=== PATIENT | female | born 1990 | race Caucasian/White ===

== ENCOUNTER 2017-08-12 07:55 | Emergency (ER) | payer MEDICAID ==
--- NOTE | 2017-08-12 08:15 | EDPHY ---
H & P Stated Complaint: l abd pain traveled here from [place]/not eating/jtube placed for this [place] - Personal History LMP (Females 10-55): 22-28 Days Ago Current Tetanus/Diphtheria Vaccine: Yes - Medical/Surgical History Hx Asthma: No Hx Chronic Respiratory Disease: No Hx Diabetes: No Hx Cardiac Disease: No Hx Renal Disease: No Hx Cirrhosis: No Hx Alcoholism: No Hx HIV/AIDS: No Hx Splenectomy or Spleen Trauma: No Other PMH: tubal ligation/j tube - Social History Smoking Status: Never smoked Time Seen by Provider: 08/12/17 08:05 HPI/ROS: CHIEF COMPLAINT: Left-sided abdominal pain x3 days HISTORY OF PRESENT ILLNESS: 26-year-old female with remote history of cholecystectomy, history of gastric bypass 1 month ago in [place], had J-tube placement 1 week ago in [place] due to decreased oral intake. She is complaining of 3-4 days of left-sided abdominal pain and nausea with no vomiting. Her J-tube is patent and is being used for feedings. She is able to tolerate oral fluid intake only. Bowel movements have looser than normal with no melena or hematochezia. No vomiting. PRIMARY CARE PROVIDER:In [place] REVIEW OF SYSTEMS: A ten point review of systems was performed and is negative with the exception of the items mentioned in the HPI PAST MEDICAL & SURGICAL HISTORY: Remote history of cholecystectomy. Gastric bypass 1 month ago. J-tube placement 1 week ago SOCIAL HISTORY:Nonsmoker, visiting from [place] PHYSICAL EXAM (Prior to examination, patient consented to physical exam, hands were washed and my usual and customary physical exam procedures followed) 1) GENERAL: Well-developed, well-nourished, alert and oriented. Appears uncomfortable 2) HEAD: Normocephalic, atraumatic 3) HEENT: Pupils equal, round, reactive to light bilaterally. Sclera anicteric. Nasopharynx, oropharynx, clear, no lesions. Dry mucous membranes Ears bilaterally with normal tympanic membranes. 4) NECK: Full range of motion, no meningeal signs. 5) LUNGS: Clear auscultation bilaterally, no wheezes, no rhonchi, no retractions. 6) HEART: Regular rate and rhythm, no murmur, no heave, no gallop. 7) ABDOMEN: Jejunal tube in place. Tender to palpation left upper and left lower abdomen. No distension. No guarding, no rebound, no focal tenderness, negative McBurney's, negative Dickson's, negative Rovsing's, negative peritoneal sign, 8) MUSCULOSKELETAL: Moving all extremities, no focal areas of tenderness, no obvious trauma. No peripheral edema or discoloration. 9) BACK: No CVA tenderness, no midline vertebral tenderness, no fluctuance, no step-off, no obvious trauma, no visual or palpable abnormality. 10) SKIN: No rash, no petechiae. 11) Psychiatric: Patient is oriented X 3, there is no agitation. DIFFERENTIAL DIAGNOSIS: In no particular order including but not limited to postoperative complications, intra-abdominal abscess, bowel obstruction (Michael Coffey) Constitutional: Initial Vital Signs Temperature (C) 36.8 C 08/12/17 07:58 Heart Rate 90 08/12/17 07:58 Respiratory Rate 16 08/12/17 07:58 Blood Pressure 120/73 08/12/17 07:58 O2 Sat (%) 97 08/12/17 07:58 O2 Delivery Mode Room Air Allergies/Adverse Reactions: No Known Allergies Allergy (Unverified 08/12/17 07:56) Home Medications: Medication Instructions Recorded Hydrocodone/APAP 5/325 [Josephine 1 tab PO Q6 PRN #10 tab 08/12/17 5/325 (RX)] Ondansetron Odt [Zofran Odt] 4 mg PO Q4PRN PRN #10 tab 08/12/17 Medical Decision Making - Diagnostics Imaging Results: Imaging Impressions Abdomen CT 08/12/17 08:11 Impression: 1. Postsurgical changes of gastric bypass. J-tube in place with adjacent focal area of free intraperitoneal air. 2. Question diffuse mild wall thickening of the colon in the splenic flexure and descending colon, which could represent colitis versus nondistention. 3. Focal area of soft tissue attenuation and inflammatory change in the mesentery in the anterior right pelvis, which could represent epiploic appendagitis or other nonspecific inflammatory change. 4. Status post cholecystectomy. Results called and discussed with Royce Coffey PA-C on August 12, 2017 at 0921 hours. Images reviewed myself (Michael Coffey) ED Course/Re-evaluation: I evaluated this patient with Royce. We discussed the laboratory findings and CT findings. She ran out of her Oxy code tones. She [place] a bariatric surgeon [place] of [place] who she will follow up with. (Landon Hernandez) 8:15 a.m.: Discussed case with secondary supervising physician Dr. Landon Hernandez in the ER. Will plan on laboratory studies, CT imaging. 9:26 a.m.: Consultation with on-call surgery Dr. Oanh Lopez who will evaluate the patient as the patient was noted to have a small amount of free air in the abdomen which may be secondary to recent J-tube placement. 10:30 a.m.: Dr. Oanh Lopez has consulted. She recommended a J-tube Gastrografin study. If this shows no extravasation states the patient can be discharged and keep the patient has appointment on Sunday in [place] (today is Sunday), recommended decreasing j tube feedings. If this study does show extravasation will contact Dr. Oanh Lopez. 11:19 a.m.: Informed by radiologist J-tube placement is appropriate. Dr. Oanh Lopez has reviewed these images and she electronically communicated with me the J tube looks well and the patient can be discharged. Recommend patient keep her appointment on Sunday with her doctor in [place] (today is Sunday). Plan will be discharge home with analgesia (Michael Coffey) - Data Points Laboratory Results: Laboratory Results 08/12/17 08:15 08/12/17 08:15 08/12/17 08/12/17 08/12/17 08:15 08:15 08:15 WBC 5.50 10^3/uL 10^3/uL (3.80-9.50) RBC 5.03 10^6/uL 10^6/uL (4.18-5.33) Hgb 11.1 g/dL L g/dL (12.6-16.3) Hct 35.6 % L % (38.0-47.0) MCV 70.8 fL L fL (81.5-99.8) MCH 22.1 pg L pg (27.9-34.1) MCHC 31.2 g/dL L g/dL (32.4-36.7) RDW 16.8 % H % (11.5-15.2) Plt Count 438 10^3/uL H 10^3/uL (150-400) MPV 8.0 fL L fL (8.7-11.7) Neut % (Auto) 64.7 % % (39.3-74.2) Lymph % (Auto) 24.9 % % (15.0-45.0) [place] % (Auto) 4.2 % L % (4.5-13.0) Eos % (Auto) 5.3 % % (0.6-7.6) Baso % (Auto) 0.5 % % (0.3-1.7) Nucleat RBC Rel Count 0.0 % % (0.0-0.2) Absolute Neuts (auto) 3.56 10^3/uL 10^3/uL (1.70-6.50) Absolute Lymphs (auto) 1.37 10^3/uL 10^3/uL (1.00-3.00) Absolute Monos (auto) 0.23 10^3/uL L 10^3/uL (0.30-0.80) Absolute Eos (auto) 0.29 10^3/uL 10^3/uL (0.03-0.40) Absolute Basos (auto) 0.03 10^3/uL 10^3/uL (0.02-0.10) Absolute Nucleated RBC 0.00 10^3/uL 10^3/uL (0-0.01) Immature Gran % 0.4 % % (0.0-1.1) Immature Gran # 0.02 10^3/uL 10^3/uL (0.00-0.10) Sodium 145 mEq/L mEq/L (135-145) Potassium 4.1 mEq/L mEq/L (3.5-5.2) Chloride 105 mEq/L mEq/L (97-110) Carbon Dioxide 27 mEq/l mEq/l (22-31) Anion Gap 13 mEq/L mEq/L (8-16) BUN 12 mg/dL mg/dL (7-23) Creatinine 0.5 mg/dL L mg/dL (0.6-1.0) Estimated GFR > 60 Glucose 95 mg/dL mg/dL (70-100) Calcium 8.9 mg/dL mg/dL (8.5-10.4) Total Bilirubin 0.5 mg/dL mg/dL (0.1-1.4) Conjugated Bilirubin 0.3 mg/dL mg/dL (0.0-0.5) Unconjugated Bilirubin 0.2 mg/dL mg/dL (0.0-1.1) AST 25 IU/L IU/L (14-46) ALT 39 IU/L IU/L (9-52) Alkaline Phosphatase 127 IU/L H IU/L (38-126) Total Protein 7.7 g/dL g/dL (6.3-8.2) Albumin 4.4 g/dL g/dL (3.5-5.0) Lipase 227 IU/L IU/L (23-300) Beta HCG, Qual NEGATIVE Medications Given: Discontinued Medications Hydromorphone HCl (Dilaudid) 0.5 mg IVP EDNOW ONE Stop: 08/12/17 09:18 Last Admin: 08/12/17 09:31 Dose: 0.5 mg Sodium Chloride (Ns) 1,000 mls @ 0 mls/hr IV ONCE ONE PRN Reason: Wide Open Stop: 08/12/17 08:17 Last Admin: 08/12/17 08:29 Dose: 1,000 mls Ondansetron HCl (Zofran) 4 mg IVP EDNOW ONE Stop: 08/12/17 08:17 Last Admin: 08/12/17 08:29 Dose: 4 mg Departure - Departure Disposition: Home, Routine, Self-Care Clinical Impression: Abdominal pain Qualifiers: Abdominal location: left upper quadrant Qualified Code(s): R10.12 - Left upper quadrant pain Condition: Good Instructions: Acute Abdominal Pain (ED) Additional Instructions: Seek immediate medical attention if you develop new or worsening symptoms, if you develop fevers, chills, inability to tolerate oral intake or any other symptoms that concerns you. Referrals: Keep, your appointment with your doctor on Sunday [Other] - As per Instructions Prescriptions: Hydrocodone/APAP 5/325 [Josephine 5/325 (RX)] 1 tab PO Q6 PRN #10 tab PRN Reason: Pain, Severe Ondansetron Odt [Zofran Odt] 4 mg PO Q4PRN PRN #10 tab PRN Reason: Nausea
[2017-08-12] MEDS ORDERED: NS 1,000 ML IV ONE (08:16)
[2017-08-12] MEDS ORDERED: ONDANSETRON 4 MG/2 ML VIAL IVP ONE (08:16)
[2017-08-12 08:27] LABS: PLATELET COUNT 438 10^3/uL (150-400)
[2017-08-12] MEDS ORDERED: IOPAMIDOL (ISOVUE-300) 100 ML BTL ONE (08:44)
[2017-08-12] MEDS ORDERED: HYDROmorphONE/DILAUDID 1 MG/ML INJ IVP ONE (09:17)
[2017-08-12] MEDS ORDERED: HYDROmorphONE/DILAUDID 2 MG/ML INJ ONE (09:27)
[2017-08-12 09:34] VITALS: RESP 18
[2017-08-12 11:22] VITALS: BP 118/63; PULSE 84; O2SAT 96
[2017-08-12 12:15] VITALS: TEMP 98.4
--- NOTE | 2017-08-12 13:27 | GCON ---
[f rep st] CONSULTATION DATE OF CONSULTATION: 08/12/2017 REFERRING PHYSICIAN: Landon Hernandez MD CHIEF COMPLAINT: Abdominal pain. HISTORY OF PRESENT ILLNESS: The patient is a 26-year-old woman, whom had gastric bypass 1 month ago in [place]. She had a J-tube placement 1 month ago in [place] due to decreased oral intake. She prese nted with 3-4 days of abdominal pain with no nausea and vomiting. She is having bowel movements. Sh e is able to tolerate p.o. She was scheduled to go back to [place] tomorrow for an appointment on Sun. In the ER, she had a CT scan obtained of her abdomen which showed a small amount of air near t he jejunostomy tube site. PAST MEDICAL HISTORY: None. PAST SURGICAL HISTORY: Tubal ligation, gastric surgery and J-tube, cholecystectomy. SOCIAL HISTORY: She does not smoke. REVIEW OF SYSTEMS: A 10-point review of system is negative except for abdominal pain and decreased p .o. intake. PHYSICAL EXAM: VITAL SIGNS: 36.8, 90, 120/73, 16, 97%. GENERAL: Pleasant, well-nourished, well-gr oomed woman, lying on bed. HEENT: Normocephalic. No gross hearing deficits. Mucous membranes mois t. Pupils equal and round. No scleral icterus. LUNGS: Clear to auscultation bilaterally. No incr eased work of breathing. CARDIAC: Regular rate. ABDOMEN: Bowel sounds present. She is soft. She is tender about 5 cm away from the J-tube site underneath a Lidoderm patch. There is no surrounding erythema. The J-tube appears to be noninfected. MUSCULOSKELETAL: Normal nails. PSYCH: Mood and affect normal. LAB RESULTS: I personally reviewed the results of her CT scan. I see a small amount of small free a ir. Her white blood cell count is within normal limits. IMPRESSION AND PLAN: The patient is a 26-year-old woman, status post gastric surgery and J-tube. He r symptoms are improved. I have asked them to do a fluoro study, which was negative for leak around the J-tube site. From my perspective, she could discharge home. I have asked her not to use her J-t ube for the next 24 hours until she sees her surgeon in [place]. /[id number]/MODL
== END 2017-08-12 12:15 | disposition home or self-care (01) ==
DX: R10.12 Left upper quadrant pain (principal); Z90.49 Acquired absence of other specified parts of digestive tract; Z98.51 Tubal ligation status
CPT/HCPCS: 96374; J1170; J2405; Q9967